=== PATIENT | female | born 1995 | race Two or more races ===

== ENCOUNTER 2017-01-24 15:24 | Inpatient (IN) | payer OTHER ==
--- NOTE | 2017-01-24 15:55 | PCMAN ---
OB Admission Note - History : 1 Term: 0 EDC:: 01/31/17 Gestational Age (weeks): 39 Days (#/7): 0 Admit Cervical Dilation:: 0 Admit Cervical Effacement (%):: 0 Admit Station:: -3 Admit Presentaton:: cephalic Membrane Status: Intact Contractions: No Contraction Frequency:: q8min Heart Rate:: 130 Status:: reactive, mod gagan, no decels EFW:: 3600g Summary of Course:: 21yo at 39w, evens 01/31/17 at 37w had BP 150/90 then repeat 132/80 Today had BP 144/80 Pt denies any OSORIO, blurry vision, nausea, contractions course: pt is dated by 8w u/s anatomy u/s at 20w - normal anatomy, posterior placenta anemia - hgb = 8.8 --> 9.4 - Labs Blood Type: A (+) positive Hct/Hgb:: 9.4 [place] Status: Equivocal GBS Status: Negative - Physical Exam General: Afebrile, No Acute Distress Lungs: Clear to Auscultation Bilaterally Cardiovascular: Regular Rate and Rhythm Abdomen: Other (efw 3600g), No Tenderness, No Distention Genitourinary: Other (cx=closed,thick, posterior) - Problems (1) Gestational hypertension Qualifiers: Trimester: third trimester Qualifier Code: (O13.3) Gestational [ -induced] hypertension without significant proteinuria, third trimester Status: Acute Code: O13.9 - Additional Comments 21yo at 39w with gestational hypertension k PI labs recommend induction at this time cervical ripening with misoprostol PV - discussed - misoprostol not FDA approved but traditionally used for this indication risks of induciton including hyperstimulaiton, infection, and c/section reviewed
[2017-01-24 16:04] LABS: BASO % 0.2 % (0.2-1.0); EOS % 0.3 % (0.9-2.9); HEMATOCRIT 28.9 % (37.0-47.0); IMM NEUT% 0.4 % (0-1); LYMPH # 1.6 (1.0-4.8); LYMPH % 15.7 % (15-45); MEAN CELL VOLUME 73.2 fl (81.0-99.0); MEAN CORPUSCULAR HEMOGLOBIN 22.8 pg (27.0-31.0); MEAN CORPUSCULAR HGB CONC 31.1 g/dl (33.0-37.0); MEAN PLATELET VOLUME 11.4 fl (7.4-10.4); MONO # 0.5 (0.0-0.8); MONO % 4.8 % (4-12); NEUT % 78.6 % (43-75); PLATELET COUNT 250 K/mm3 (130-400); RED CELL DISTRIBUTION WIDTH 16.1 % (11.5-14.5)
[2017-01-24] MEDS ORDERED: MINERAL OIL 25 ML BOT ONE (16:14)
[2017-01-24] MEDS ORDERED: OXYTOCIN 10 UNITS/ML VIAL ONE (16:14)
[2017-01-24] MEDS ORDERED: LIDOCAINE 1% (PRES FREE) 30 ML VIAL ONE (16:14)
[2017-01-24] MEDS ORDERED: LIDOCAINE Viscous 2% 15 ML UDCUP ONE (16:14)
[2017-01-24] MEDS ORDERED: OXYTOCIN IN NS 0 ML IV ONE (16:15)
[2017-01-24 16:23] LABS: ALBUMIN 3.3 gm/dL (3.5-5.7); CALCIUM 8.7 mg/dL (8.6-10.3); URIC ACID 4.3 mg/dL (2.3-7.6)
[2017-01-24 17:05] VITALS: BMI 36.9
[2017-01-24] MEDS: MISOPROSTOL 25 MCG TABLET VG SCH ×2 (17:18→21:36)
--- NOTE | 2017-01-24 17:21 | PDOC36 ---
Provider Note Subject: induction note Note: Labs pending cx=closed,posterior FHT: 130's, mod gagan, reactive, no decels TOCO: q8min, irregular misoprostol 25mcg placed
[2017-01-24 18:27] LABS: CREATININE,RANDOM URINE 37 mg/dL
[2017-01-25] MEDS: MISOPROSTOL 25 MCG TABLET VG SCH ×5 (01:27→16:32)
--- NOTE | 2017-01-25 07:09 | PDOC36 ---
Provider Note Subject: Induction note Note: Pt had slept comfortably. s/p misoprostol x 4 overnight FHT: 130's, mod variability, reactive, no decels, cat I [place]: q 2-4 min, pt feels them mildly SVE by RN /high BP wnl PIH labs reviewed, P/C ratio 216 anemia - hgb=9.0 gestational HTN at 39+1 cont induction - misoprostol
--- NOTE | 2017-01-25 09:09 | PDOC36 ---
Provider Note Subject: Patient comfortable. VSS SVE due at 0940 FHT 150/mod/+accels/-decels. FHT reviewed since admission [place]: not picking up very well d/t maternal positioning. A/P 21 yo @31.1 IOL for gHTN. Cytotec x4 Consider additional cytotec if ctx pattern allows vs orantes balloon. FHT Cat I
--- NOTE | 2017-01-25 16:23 | PDOC36 ---
Provider Note Subject: Patient doing well. no complaints. VSS SVE: 2/70/-2, soft, mid position FHT: 120/mod/+accels/-decels [address]: q3-6 BSUS still vtx. A/P 21 yo @37.1, IOL gestational HTN. S/P Cytotec x5 Bishops score finally favorable. Will start pitocin. GBS neg. Cat I
[2017-01-25] MEDS ORDERED: OXYTOCIN IN NS 500 ML IV ONE (16:36)
[2017-01-25] MEDS: LACTATED RINGERS 1,000 ML IV SCH (17:15)
[2017-01-25] MEDS: OXYTOCIN IN NS 500 ML IV PRN ×3 (17:30→21:02)
[2017-01-26] MEDS: FENTANYL 100 MCG/2 ML VIAL IV PRN ×3 (00:05→02:17)
[2017-01-26] MEDS: LACTATED RINGERS 1,000 ML IV SCH ×2 (00:30→11:28)
[2017-01-26] MEDS ORDERED: OXYTOCIN IN NS 334 ML IV PRN (03:08)
[2017-01-26] MEDS ORDERED: LIDOCAINE 1% (PRES FREE) 30 ML VIAL SUB-Q ONE (03:10)
--- NOTE | 2017-01-26 03:23 | PCMDEL ---
Delivery Note - Labor 2nd stage (hr/min):: 15m 3rd stage (hr/min):: 5m Pushed (hr/min):: 22m - Delivery Delivery (Date): 01/26/17 Delivery (Time): 03:21 Gender: Male Presentation: Cephalic Position: OA Umbilical Cord: 3 Vessel Delayed Cord Clamping:: < 1-2 min 1 Minute Total: 9 5 Minute Total: 9 Placenta:: intact spontaneous EBL:: 250 Perineum:: 2nd degree Suture:: 2-0 vicryl Length ROM:: 26 m
[2017-01-26] MEDS ORDERED: ACETAMINOPHEN 325 MG TABLET PO PRN (03:43)
[2017-01-26] MEDS ORDERED: OXYTOCIN IN NS 167 ML IV PRN (03:43)
[2017-01-26] MEDS ORDERED: LANOLIN 50 APPLIC/7G TUBE TP PRN (03:43)
[2017-01-26] MEDS ORDERED: DOCUSATE SODIUM 100 MG CAPSULE PO PRN (03:43)
[2017-01-26] MEDS ORDERED: BENZOCAINE/MENTHOL 60 APPLIC/BOT TP PRN (03:43)
[2017-01-26] MEDS: IBUPROFEN 800 MG TABLET PO PRN ×3 (04:46→22:15)
--- NOTE | 2017-01-26 08:30 | PDOC44 ---
- Subjective Day: 0 Reports Pain Tolerable, Reports , Reports Lochia Light, Reports Tolerating Regular Diet - Objective Temp Pulse Resp BP Pulse Ox 97.7 F 83 16 121/75 01/26/17 07:31 01/26/17 07:31 01/26/17 07:31 01/26/17 07:31 Current Medications Generic Name Dose Route Start Last Admin Trade Name Freq PRN Reason Stop Dose Admin Acetaminophen 325 - 650 mg 01/26/17 03:43 Tylenol PO Q4H PRN Pain (Mild) Benzocaine/Menthol 1 applic 01/26/17 03:43 01/26/17 04:46 Dermoplast TP 1 bot PRN PRN Administration Patient Comfort Docusate Sodium 100 mg 01/26/17 03:43 Colace PO DAILY PRN Comfort Emollient Ointment 1 applic 01/26/17 03:43 Ric-[id number]-[id number] TP PRN PRN sore nipples OXYTOCIN IN NS 167 mls @ 167 mls/hr 01/26/17 03:43 Oxytocin-Ns 30 Unit/500 Ml IV X1 PRN Bleeding/3rd stage labor Ibuprofen 800 mg 01/26/17 03:43 01/26/17 04:46 Motrin PO 800 mg Q6H PRN Administration Pain (Mild) Oxycodone/Acetaminophen 1 - 2 tab 01/26/17 03:43 Percocet 5/325 PO Q4H PRN Pain (Moderate) Sodium Chloride 10 ml 01/26/17 03:43 Normal Saline 10ml Flush IV PRN PRN IV Flush Sodium Chloride 10 ml 01/26/17 09:00 Normal Saline 10ml Flush IV Q8HR TERI - Physical Exam General: Afebrile, No Acute Distress Fundus: Firm, At Umbilicus Abdomen: Normal Bowel Sounds, No Tenderness, No Distention - Problems:Assessment/Plan (1) Gestational hypertension Qualifiers: Trimester: third trimester Qualifier Code: (O13.3) Gestational [ -induced] hypertension without significant proteinuria, third trimester Status: Acute Disposition: Stable, Anticipate DC Home Tomorrow (doing well ; BP wnl at this time. May d/c tomorrow.)
[2017-01-26] MEDS: OXYCODONE/ACETAMINOPHEN 5/325 MG TABLET PO PRN ×2 (08:54→16:13)
[2017-01-27] MEDS: OXYCODONE/ACETAMINOPHEN 5/325 MG TABLET PO PRN (01:28)
[2017-01-27] MEDS: IBUPROFEN 800 MG TABLET PO PRN ×2 (05:52→12:54)
[2017-01-27 06:12] LABS: HEMATOCRIT 23.5 % (37.0-47.0); HEMOGLOBIN 7.1 gm/l (12.0-16.0)
[2017-01-27 08:25] VITALS: BP 128/81
--- NOTE | 2017-01-27 12:06 | PDOC39B ---
Hospital Course: ADMIT DATE: 01/24/17 DISCHARGE DATE: 01/27/17 ADMISSION DIAGNOSES: intrauterine at 39 weeks, induced hypertension PROCEDURES: induction of labor, spontaneous vaginal delivery with repair of second degree laceration HISTORY OF PRESENT ILLNESS: 21 year old G1 T0 L0 at 39 weeks 2 days presenting with elevated blood pressures HOSPITAL COURSE: The patient had an uneventful post course with the exception of anemia. By day of discharge the patient is ambulating, eating, voiding, and passing flatus without difficulty. Pain is controlled and lochia is appropriate. She is [] - Physical Exam Vital Signs: Temp Pulse Resp BP Pulse Ox 98.0 F 76 18 128/81 01/27/17 08:12 01/27/17 08:12 01/27/17 08:12 01/27/17 08:12 General: Afebrile, No Acute Distress Psych/Mental Status: Mood/Affect Appropriate, Judgment/Insight Intact, Bonding Well Lungs: Clear to Auscultation Bilaterally, Normal Air Movement Breast: Soft, Skin intact, Nipples Intact, No Tenderness, No Erythema, No Engorged Fundus: Firm, Midline, Below Umbilicus, Other (nontender) Genitourinary: Other (voiding without difficulty) Lochia: Light Extremities: No Tenderness - Discharge Diagnosis (1) Anemia, Status: Acute - Discharge Plan Condition: Stable Disposition: Home Instruction Forms: Vaginal Discharge Instructions Additional Instructions: take prescriptions as written, office visit [address] dixon, nothing in vagina x 6 weeks, call if any headaches, upper abdominal pain or scotoma (spots in the eyes) Prescriptions: Ibuprofen [Motrin] 800 mg PO Q8H PRN #30 tablet PRN Reason: Pain FERROUS SULFATE (65 Fe) [IRON FERROUS SULFATE 325 MG TABLET (SHF)] 325 mg PO DAILY #30 tab
== END 2017-01-27 13:35 | disposition home or self-care (01) | DRG 775 ==
LOC: FBC 15:25
PROVIDERS: ADMIT Obstetrics & Gynecology; ATTEND Obstetrics & Gynecology
PROC: 3E0P7GC Introduction of Other Therapeutic Substance into Female Reproductive, Via Natural or Artificial Opening (ICD-10-PCS; 2017-01-24)
PROC: 10E0XZZ Delivery of Products of Conception, External Approach (ICD-10-PCS; principal; 2017-01-26)
PROC: 0KQM0ZZ Repair Perineum Muscle, Open Approach (ICD-10-PCS; 2017-01-26)
DX: O13.4 Gestational [pregnancy-induced] hypertension without significant proteinuria, complicating childbirth (principal); O70.1 Second degree perineal laceration during delivery; Z3A.39 39 weeks gestation of pregnancy; Z37.0 Single live birth